=== PATIENT | male | born 1995 | race Caucasian/White ===

== ENCOUNTER 2016-12-21 18:18 | Emergency (ER) | payer OTHER ==
[~2016-12-21] VITALS: Ht 170.2 cm; Wt 60.8 kg
[2016-12-21 19:28] VITALS: BP 129/80
== END 2016-12-21 19:28 | disposition home or self-care (01) ==
LOC: ED 18:18
DX: S01.01XA Laceration without foreign body of scalp, initial encounter (principal); W17.89XA Other fall from one level to another, initial encounter; Y93.89 Activity, other specified; Y92.89 Other specified places as the place of occurrence of the external cause; Y99.8 Other external cause status
CPT/HCPCS: 90715; J2001

== ENCOUNTER 2017-01-03 13:05 | Emergency (ER) | payer OTHER ==
[2017-01-03 13:11] VITALS: BP 114/52
== END 2017-01-03 13:40 | disposition home or self-care (01) ==
LOC: ED 13:05
DX: S01.01XD Laceration without foreign body of scalp, subsequent encounter (principal); X58.XXXD Exposure to other specified factors, subsequent encounter; Y92.89 Other specified places as the place of occurrence of the external cause; Y99.8 Other external cause status

== ENCOUNTER 2020-04-20 16:20 | Emergency (ER) | payer SELFPAY ==
[~2020-04-20] VITALS: Ht 172.7 cm; Wt 65.8 kg
[2020-04-20 16:23] VITALS: Ht 172.7 cm; Wt 65.8 kg
[2020-04-20 17:04] VITALS: BP 119/71
== END 2020-04-20 17:04 | disposition home or self-care (01) ==
LOC: ED 16:20
DX: R50.9 Fever, unspecified (principal); R11.0 Nausea; J02.9 Acute pharyngitis, unspecified; Z20.828 Contact with and (suspected) exposure to other viral communicable diseases
CPT/HCPCS: U0003-CS